=== PATIENT | male | born 1985 | race Asian ===

== ENCOUNTER 2019-04-25 12:53 | Emergency (ER) | payer MEDICAID, OTHER ==
[~2019-04-25] VITALS: Ht 172.7 cm; Wt 90.9 kg
--- NOTE | 2019-04-25 13:05 | NUR ---
PT BIB [facility] FOR [facility]. PT STATES HE RAN OUT OF [employer] AND HAS BEEN FEELING DEPRESSED FOR "A LONG TIME." PT ADMITS TO [facility], STATES HE DOES NOT HAVE A PLAN. 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 PT STATES HE DRANK "A LOT" TODAY. WHEN ASKED, HE STATES HE DRINKS 1 PINT/DAY. PT ABLE TO PROVIDE URINE SAMPLE. AMBULATED TO BATHROOM AND BACK TO ROOM WITH STEADY GAIT. BREATHYLIZER READS 0.306. ROOM SECURED, PT CHANGING INTO GOWN NOW. ALL BELONGINGS BEING PLACED INTO PT BELONGING BAG.
[2019-04-25] MEDS ORDERED: LISINOPRIL (13:17)
[2019-04-25 13:47] LABS: BASOPHILS # (AUTO) 0.03 x10^3/uL (0-0.1); BASOPHILS % (AUTO) 0 % (0-1); EOSINOPHILS # (AUTO) 0.01 x10^3/uL (0-0.4); EOSINOPHILS % (AUTO) 0 % (1-7); LYMPHOCYTES # (AUTO) 2.84 x10^3/uL (1-3.4); LYMPHOCYTES % (AUTO) 25 % (22-44); MD NO; MEAN CORPUSCULAR HGB CONC 34.2 g/dL (33.2-36.2); MEAN CORPUSCULAR VOLUME 90.6 fL (81-97); MEAN PLATELET VOLUME 8.3 fL (7.4-10.4); MONOCYTES # (AUTO) 0.36 x10^3/uL (0.2-0.8); MONOCYTES % (AUTO) 3 % (2-9); NEUTROPHILS # (AUTO) 7.98 x10^3/uL (1.8-6.8); NEUTROPHILS % (AUTO) 71 % (42-75); PLATELET COUNT 339 x10^3/uL (130-400); RED CELL DISTRIBUTION WIDTH 12.6 % (9.4-14.8)
[2019-04-25 13:56] LABS: ALANINE AMINOTRANSFERASE 54 U/L (12-78); ALBUMIN 4.3 g/dL (3.4-5.0); ANION GAP 15 mmol/L (5-15); CALCIUM 8.5 mg/dL (8.5-10.1); CHLORIDE 103 mmol/L (98-107); CREATININE 1.35 mg/dL (0.7-1.3); SALICYLATE LEVEL 1.8 mg/dL (2.8-20.0)
[2019-04-25 13:57] LABS: AMPHETAMINE SCREEN, URINE Negative (Negative); BARBITURATE SCREEN, URINE Negative (Negative); BENZODIAZEPINE SCREEN, URINE Negative (Negative); CANNABINOID SCREEN, URINE Negative (Negative); COCAINE SCREEN, URINE Negative (Negative); METHADONE SCREEN, URINE Negative (Negative); OPIATE SCREEN, URINE Negative (Negative)
[2019-04-25 13:58] LABS: ALKALINE PHOSPHATASE 104 U/L (45-117); BILIRUBIN,TOTAL 0.5 mg/dL (0.2-1.0); TOTAL PROTEIN 9.2 g/dL (6.4-8.2)
--- NOTE | 2019-04-25 14:07 | NUR ---
ONE BAG OF BELONGINGS PLACED IN SECURE LOCKER. PT RESTING ON GURYI. NILESHN. ROOM SECURE. SITTER AT BEDSIDE.
--- NOTE | 2019-04-25 14:22 | NUR ---
PT HAS WATER AT BEDSIDE.
--- NOTE | 2019-04-25 14:45 | NUR ---
PT RESTING ON GURNEY. EYES CLOSED. RESPIRATIONS EVEN AND UNLABORED. NADN. SITTER AT BEDSIDE. ROOM SECURE.
--- NOTE | 2019-04-25 16:04 | NUR ---
PT BREATHYLIZED AGAIN AT THIS TIME- NOW 0.217. RESTING ON GURNEY. NADN. HAS WATER AT BEDSIDE. STATES HE DOES NOT YET WANT FOOD. DENIES NEEDS. ROOM SECURE. SITTER AT BEDSIDE.
[2019-04-25] MEDS ORDERED: LORazepam 1MG TABLET PO ONE ×2 (17:00→20:30)
[2019-04-25] MEDS ORDERED: LORazepam 1MG TABLET ONE ×3 (17:00→23:57)
--- NOTE | 2019-04-25 17:02 | NUR ---
PT MEDICATED PER [facility]. RESTING ON GURNEY. NADN. SITTER AT BEDSIDE. ROOM SECURE.
--- NOTE | 2019-04-25 17:52 | NUR ---
PT AMBULATORY WITH STEADY GAIT TO BATHROOM AND BACK TO ROOM. RESTING ON GURNEY. NADN. SITTER AT BEDSIDE. ROOM SECURE.
--- NOTE | 2019-04-25 18:24 | NUR ---
DINNER TRAY ORDERED FOR PT. PT BREATHYLIZED AGAIN AT THIS TIME- 0.124. PSYCH HARBOR MASTER NOTIFIED. AT BEDSIDE NOW.
--- NOTE | 2019-04-25 18:48 | NUR ---
REPORT GIVEN TO MICHAELA XIONG.
--- NOTE | 2019-04-25 18:55 | NUR ---
Assumed care of pt at this time. Pt alert and sitting up on gurney. Psych SALES ADVISOR at bedside.
[2019-04-25] MEDS: LORazepam 1MG TABLET PO PRN (19:51)
--- NOTE | 2019-04-25 19:54 | NUR ---
Pt alert and sitting up on gurney. POC explained to pt. Per pt, PRN ativan given. Water given. Pt remains in view of sitter.
--- NOTE | 2019-04-25 20:16 | NUR ---
REQ SENT TO [facility]
[2019-04-25] MEDS ORDERED: GABAPENTIN 300 MG CAPSULE ONE (20:36)
[2019-04-25] MEDS: GABAPENTIN 300 MG CAPSULE PO SCH (20:43)
[2019-04-25] MEDS: BUSPIRONE 10 MG TABLET PO SCH (20:44)
--- NOTE | 2019-04-25 20:50 | NUR ---
Pt medicated with 2100 meds. Pt given water and juice. Telepsych RN at bedside. Pt remains in view of sitter.
[2019-04-25] MEDS ORDERED: LORazepam 2 MG/ML, 1ML IVPush ONE (22:00)
[2019-04-25] MEDS ORDERED: LORazepam 2 MG/ML, 1ML ONE (22:07)
--- NOTE | 2019-04-25 22:16 | NUR ---
PIV placed by interventional tech. Pt on full monitors. Pt medicated per MAR. Side rails up for safety. Pt remains in view of sitter.
--- NOTE | 2019-04-25 23:16 | NUR ---
Pt ambulatory to restroom. Pt remains in view of sitter.
--- NOTE | 2019-04-26 00:02 | NUR ---
1mg PRN ativan given. Pt remains alert and oriented. Pt remains on room air. Monitors intact. Pt remains in view of sitter.
--- NOTE | 2019-04-26 01:19 | NUR ---
Pt alert and oriented. Pt on room air. CIWA rescored and vitals retaken. Pt remains in view of sitter.
[2019-04-26] MEDS ORDERED: LORazepam 2 MG/ML, 1ML IVPush PRN (02:30)
[2019-04-26] MEDS ORDERED: MAGNESIUM SULFATE 1 GM, THIAMINE 100 MG, FOLIC ACID 1 MG, MVI ADULT 10 ML in SODIUM CHL... IV ONE (02:30)
[2019-04-26] MEDS ORDERED: LORazepam 2 MG/ML, 1ML ONE (02:39)
--- NOTE | 2019-04-26 02:50 | NUR ---
Pt resting on gurney. Pt remains on monitors. Ativan given. Pt remains being closely monitored.
--- NOTE | 2019-04-26 03:13 | NUR ---
Pt sleeping on gurney. Banana bag started.
--- NOTE | 2019-04-26 03:44 | NUR ---
Pt sleeping on gurney and noted to be 82% RA. Pt easily awakened and placed on 2L NC for return of sats >92%.
--- NOTE | 2019-04-26 04:36 | NUR ---
Pt sleeping on gurney. Pt remains on monitors and 2L NC. Pt remains closely monitored.
--- NOTE | 2019-04-26 05:24 | NUR ---
Pt awake. Pt does report improvement in symptoms. Pt moved into hospital bed. Pt remains on monitors. Call light within reach.
--- NOTE | 2019-04-26 06:31 | NUR ---
Pt dozing off-on in room. Pt currently on RA. Banana bag continues. Sitter outside of room.
--- NOTE | 2019-04-26 06:52 | NUR ---
Report given to MICHAELA Chan
[2019-04-26] MEDS ORDERED: CHLORDIAZEPOXIDE 25 MG CAPSULE PO PRN (07:30)
[2019-04-26] MEDS ORDERED: LORazepam 1MG TABLET ONE (07:41)
[2019-04-26] MEDS: LORazepam 1MG TABLET PO PRN ×2 (07:42)
--- NOTE | 2019-04-26 07:55 | NUR ---
THROUGHPUT RN: PT AOX4. SATING MID 90'S RA. NO LONGER TACHY ABOVE 105. [facility] NOTIFIED OF PT. DREW CARBAJAL CANNOT TAKE PT AT THIS TIME BUT WILL BE ABLE TO ACCEPT PT "IN A WHILE".
--- NOTE | 2019-04-26 08:00 | NUR ---
MEAL TRAY PROVIDED. PT RESTING IN BED
--- NOTE | 2019-04-26 08:14 | NUR ---
Met with pt again and discussed with psychiatrist. Notified charge nurse that pt has been accepted to [facility].
[2019-04-26] MEDS ORDERED: GABAPENTIN 300 MG CAPSULE ONE (08:29)
[2019-04-26 08:30] VITALS: BP 111/78
[2019-04-26] MEDS ORDERED: CHLORDIAZEPOXIDE 25 MG CAPSULE ONE (08:52)
[2019-04-26] MEDS: GABAPENTIN 300 MG CAPSULE PO SCH (08:53)
[2019-04-26] MEDS: BUSPIRONE 10 MG TABLET PO SCH (08:53)
--- NOTE | 2019-04-26 09:30 | NUR ---
RESTING IN BED, SAFETY PRECAUTIONS IN PLACE. STEADY AMBULATION TO BATHROOM
--- NOTE | 2019-04-26 10:06 | NUR ---
REPORT CALLED TO DALIA- [facility]
[2019-04-26] MEDS ORDERED: MIDAZOLAM 1 MG/ML, 2ML IM ONE (10:30)
[2019-04-26] MEDS ORDERED: LORazepam 2 MG/ML, 1ML IVPush ONE (10:30)
--- NOTE | 2019-04-26 10:36 | NUR ---
MEDICATED FOR ANXIETY
[2019-04-26] MEDS ORDERED: MIDAZOLAM 10MG/2 ML IM ONE (11:00)
[2019-04-26] MEDS ORDERED: LORA-446 PO (11:55)
[2019-04-26] MEDS ORDERED: LISI-167 PO (11:55)
[2019-04-26] MEDS ORDERED: BUSP10TA PO (11:55)
[2019-04-26] MEDS ORDERED: GABA600T7 PO (11:55)
== END 2019-04-26 11:01 | disposition home or self-care (01) ==
LOC: ED 19:45
DX: F33.9 Major depressive disorder, recurrent, unspecified (principal); F10.220 Alcohol dependence with intoxication, uncomplicated; F10.239 Alcohol dependence with withdrawal, unspecified; Y90.0 Blood alcohol level of less than 20 mg/100 ml; I10 Essential (primary) hypertension
CPT/HCPCS: 36415; 80053; 80307; 85025; 96365; 96366; 96372; 96375; 96376; 99285; J2060; J2250; J3411; J3475; J7030

== ENCOUNTER 2019-04-25 22:17 | Inpatient (IN) | payer MEDICAID ==
[~2019-04-25] VITALS: Ht 172.7 cm; Wt 95.2 kg
[~2019-04-25 22:17] MED LIST: LISINOPRIL
[2019-04-26] MEDS ORDERED: ONDANSETRON ODT 4 MG PO PRN (08:30)
[2019-04-26] MEDS ORDERED: BISACODYL 10 MG SUPP PR PRN (08:30)
[2019-04-26] MEDS ORDERED: POLYETHYLENE GLYCOL 17 GM PACKET PO PRN (08:30)
[2019-04-26] MEDS ORDERED: ACETAMINOPHEN 325 MG TABLET PO PRN (08:30)
[2019-04-26] MEDS ORDERED: LORazepam 1MG TABLET PO PRN (08:30)
[2019-04-26] MEDS ORDERED: DOCUSATE 100 MG CAPSULE PO PRN (08:30)
[2019-04-26 10:58] LABS: CHOL/HDL RATIO 3.4; LDL/HDL RATIO 1.7 (0.5-3.0)
[2019-04-26] MEDS ORDERED: LORA-446 PO (11:55)
[2019-04-26] MEDS ORDERED: BUSP10TA PO (11:55)
[2019-04-26] MEDS ORDERED: LISI-167 PO (11:55)
[2019-04-26] MEDS ORDERED: GABA600T7 PO (11:55)
[2019-04-26 12:00] VITALS: BP 151/84
[2019-04-26] MEDS ORDERED: PLEASE ENTER HEIGHT AND WEIGHT MC SCH (12:00)
[2019-04-26] MEDS: ACAMPROSATE 333 MG TABLET.DR PO SCH ×3 (13:39→20:07)
[2019-04-26] MEDS: LORazepam 1MG TABLET PO PRN ×2 (13:39→19:56)
[2019-04-26] MEDS: FOLIC ACID 1 MG TABLET PO SCH (13:40)
[2019-04-26] MEDS: THIAMINE 100MG TABLET PO SCH (13:40)
[2019-04-26] MEDS: MULTIVITAMIN 1 TABLET PO SCH (13:41)
[2019-04-26 15:59] LABS: MICROSCOPIC NOT IND
[2019-04-26 16:05] LABS: CULTURE INDICATED? NO
[2019-04-26 19:30] VITALS: BP 138/85
[2019-04-26 23:33] VITALS: BP 135/94
[2019-04-26] MEDS ORDERED: MELATONIN 5 MG TABLET ONE (23:38)
[2019-04-26] MEDS ORDERED: TRAZODONE 50MG TABLET ONE (23:42)
[2019-04-26] MEDS: TRAZODONE 50MG TABLET PO PRN (23:45)
[2019-04-27 05:45] VITALS: BP 150/80
[2019-04-27 06:30] LABS: BASOPHILS # (AUTO) 0.04 x10^3/uL (0-0.1); BASOPHILS % (AUTO) 1 % (0-1); EOSINOPHILS # (AUTO) 0.13 x10^3/uL (0-0.4); EOSINOPHILS % (AUTO) 2 % (1-7); LYMPHOCYTES # (AUTO) 2.21 x10^3/uL (1-3.4); LYMPHOCYTES % (AUTO) 37 % (22-44); MD NO; MEAN CORPUSCULAR HEMOGLOBIN 30.7 pg (27.5-34.5); MEAN CORPUSCULAR VOLUME 90.4 fL (81-97); MEAN PLATELET VOLUME 8.3 fL (7.4-10.4); MONOCYTES # (AUTO) 0.42 x10^3/uL (0.2-0.8); MONOCYTES % (AUTO) 7 % (2-9); NEUTROPHILS # (AUTO) 3.24 x10^3/uL (1.8-6.8); NEUTROPHILS % (AUTO) 54 % (42-75); PLATELET COUNT 208 x10^3/uL (130-400); RED BLOOD COUNT 4.67 x10^6/uL (4.38-5.82); RED CELL DISTRIBUTION WIDTH 12.7 % (9.4-14.8)
[2019-04-27 06:46] LABS: ALANINE AMINOTRANSFERASE 37 U/L (12-78); ALBUMIN 3.7 g/dL (3.4-5.0); ANION GAP 8 mmol/L (5-15); CALCIUM 8.6 mg/dL (8.5-10.1); CHLORIDE 107 mmol/L (98-107)
[2019-04-27 06:49] LABS: ALKALINE PHOSPHATASE 86 U/L (45-117); BILIRUBIN,TOTAL 0.8 mg/dL (0.2-1.0); TOTAL PROTEIN 7.3 g/dL (6.4-8.2)
[2019-04-27 07:14] VITALS: BP 138/91
[2019-04-27] MEDS: ACAMPROSATE 333 MG TABLET.DR PO SCH ×3 (08:17→20:26)
[2019-04-27] MEDS: AMLODIPINE 5 MG TABLET PO SCH (08:17)
[2019-04-27] MEDS: THIAMINE 100MG TABLET PO SCH (08:18)
[2019-04-27] MEDS: FOLIC ACID 1 MG TABLET PO SCH (08:18)
[2019-04-27] MEDS: VENLAFAXINE 75 MG CAP ER PO SCH (08:18)
[2019-04-27] MEDS: MULTIVITAMIN 1 TABLET PO SCH (08:18)
[2019-04-27] MEDS: LORazepam 1MG TABLET PO PRN ×3 (09:04→20:26)
[2019-04-27 19:58] VITALS: BP 144/88
[2019-04-27] MEDS: TRAZODONE 50MG TABLET PO PRN (22:33)
[2019-04-28 03:21] VITALS: BP 126/80
[2019-04-28 07:14] VITALS: BP 123/82
[2019-04-28] MEDS: ACAMPROSATE 333 MG TABLET.DR PO SCH ×3 (08:03→20:12)
[2019-04-28] MEDS: THIAMINE 100MG TABLET PO SCH (08:03)
[2019-04-28] MEDS: AMLODIPINE 5 MG TABLET PO SCH (08:03)
[2019-04-28] MEDS: MULTIVITAMIN 1 TABLET PO SCH (08:04)
[2019-04-28] MEDS: VENLAFAXINE 75 MG CAP ER PO SCH (08:04)
[2019-04-28] MEDS: FOLIC ACID 1 MG TABLET PO SCH (08:04)
[2019-04-28] MEDS: LORazepam 1MG TABLET PO PRN ×4 (08:04→23:40)
[2019-04-28 13:32] VITALS: BP 135/79
[2019-04-28] MEDS ORDERED: CHLORDIAZEPOXIDE 25 MG CAPSULE PO PRN (14:00)
[2019-04-28] MEDS ORDERED: LORazepam 0.5MG TABLET PO PRN (14:00)
[2019-04-28] MEDS ORDERED: LORazepam 1MG TABLET PO PRN (14:00)
[2019-04-28] MEDS: GABAPENTIN 300 MG CAPSULE PO SCH ×2 (15:45→20:12)
[2019-04-28] MEDS: BUSPIRONE 5 MG TABLET PO SCH ×2 (15:45→20:12)
[2019-04-28] MEDS ORDERED: TRAZ50TA66 PO (15:49)
[2019-04-28] MEDS ORDERED: MULT1TAB60 PO (15:49)
[2019-04-28] MEDS ORDERED: BUSP5TAB2 PO (15:49)
[2019-04-28] MEDS ORDERED: VENL75CA6 PO (15:49)
[2019-04-28] MEDS ORDERED: BUSP10TA PO (15:49)
[2019-04-28] MEDS ORDERED: AMLO-150 PO (15:49)
[2019-04-28 19:00] VITALS: BP 134/91
[2019-04-28] MEDS: TRAZODONE 50MG TABLET PO PRN (22:57)
[2019-04-29] MEDS: LORazepam 1MG TABLET PO PRN ×2 (06:45→10:41)
[2019-04-29 07:16] VITALS: BP 121/85
[2019-04-29] MEDS: MULTIVITAMIN 1 TABLET PO SCH (08:41)
[2019-04-29] MEDS: AMLODIPINE 5 MG TABLET PO SCH (08:42)
[2019-04-29] MEDS: FOLIC ACID 1 MG TABLET PO SCH (08:42)
[2019-04-29] MEDS: VENLAFAXINE 75 MG CAP ER PO SCH (08:42)
[2019-04-29] MEDS: THIAMINE 100MG TABLET PO SCH (08:42)
[2019-04-29] MEDS: BUSPIRONE 5 MG TABLET PO SCH (08:42)
[2019-04-29] MEDS: GABAPENTIN 300 MG CAPSULE PO SCH (08:42)
[2019-04-29] MEDS: ACAMPROSATE 333 MG TABLET.DR PO SCH (08:42)
== END 2019-04-29 10:55 | disposition home or self-care (01) | DRG 885 ==
LOC: 3E 04-26 11:09
PROVIDERS: ADMIT Psychiatry & Neurology Psychosomatic Medicine; ATTEND Psychiatry & Neurology Psychosomatic Medicine
DX: F33.2 Major depressive disorder, recurrent severe without psychotic features (principal); F10.239 Alcohol dependence with withdrawal, unspecified; F13.20 Sedative, hypnotic or anxiolytic dependence, uncomplicated; N17.9 Acute kidney failure, unspecified; R45.851 Suicidal ideations; F41.1 Generalized anxiety disorder; F17.200 Nicotine dependence, unspecified, uncomplicated; I10 Essential (primary) hypertension; Z79.899 Other long term (current) drug therapy
CPT/HCPCS: 36415; 80053; 80061; 81003; 82140; 82607; 85025; 93005